=== PATIENT | female | born 1965 | race Caucasian/White ===

== ENCOUNTER 2024-06-22 07:26 | Emergency (ER) | payer OTHER, SELFPAY ==
[2024-06-22 07:28] VITALS: BP 169/119
[2024-06-22] MEDS: NSS 1000 IV (07:54)
[2024-06-22] MEDS: ZOFRAN 4 MG IV (07:55)
[2024-06-22] MEDS: TORADOL 15 MG IM (07:56)
[2024-06-22] MEDS: DILAUDID 1 MG IV (07:57)
--- NOTE | 2024-06-22 08:04 | ED.GENMED ---
History of Present Illness
General
Chief Complaint: Flank Pain
Source: patient
Exam Limitations: none
Time Seen by Provider: 06/22/24 07:41
Nursing documentation reviewed up to this point in time: agreed with
History of Present Illness
History of Present Illness:
58 yo female w h/o NIDDM, kidney stones w removal and stent, HTN, HLD, chronic UTIs, umbilical hernia repair x 2, presents for R flank pain 12/20 that started last p.m. Denies n/v. Denies fever/chills.
Was in [place] for a week, swimming etc. returned 5 days ago. Started having burning with urination a few days ago. Started Azo
Past History
Past History
ED Past Medical History: HTN, Hypercholesterolemia, NIDDM and Other (Kidney stones, UTI's)
ED Past Surgical History:
Social History
Tobacco: Former smoker
Alcohol: None
Drug: None
Personal:
Living: with family
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
Family History
Family History: Other (Mother recently )
Review of Systems
Review of Systems
Allergies reviewed?: Yes
All Other Systems: ROS reviewed and negative except as documented in HPI and ROS
Constitutional: Denies fever or chills
Respiratory: Denies trouble breathing
Cardiac: Denies chest pain
ABD/GI: Denies abdominal pain, nausea, vomiting or diarrhea
: Reports dysuria and flank pain (right)
Musculoskeletal: Reports no symptoms
Skin: Reports no symptoms
Neurological: Reports no symptoms
Phy Exam
Physical Exam
Physical Exam:
GENERAL: Moderate distress d/t R flank pain. A&Ox3.
CONSTITUTIONAL: Afebrile.
EYES: clear, conjunctivae normal
ENMT: moist mucus membranes, Pharynx nl
RESPIRATORY: Regular respirations, nonlabored, lungs clear.
CARDIOVASCULAR: Regular rate and rhythm, no murmurs, no rubs.
GI: Soft, nontender, normal BS. R flank tenderness
MUSCULOSKELETAL: Moves with ease. Well perfused.
SKIN: Warm, dry, pink
PSYCH: Anxious mood and affect. Well kept, interactive and appropriate
NEUROLOGIC: Awake, alert and oriented. No focal neurological deficits
Course
Orders/Labs/Results
Orders:
Orders
06/22/24 07:43
HYDROmorphone [Dilaudid] 1 mg IV NOW STA
06/22/24 07:44
CT Abd/pel Without Iv Or Oral Urgent
Comment:
Reason For Exam: R flank pain hx stones
0.9% Sodium Chloride 1000 ml [Nss] 1,000 ml IV BOLUS
Ketorolac [Toradol] 15 mg IM NOW STA
Ondansetron Injectable [Zofran] 4 mg IV NOW STA
06/22/24 07:53
Complete Blood Count/With Diff Urgent
Comprehensive Metabolic Panel Urgent
06/22/24 09:35
Urinalysis Reflex To Culture Urgent
Date Specimen was Collected: 06/22/24
Time Specimen was Collected: 09:29
Urine Microscopic Reflex Cult Urgent
Urine Culture Urgent
[facility] Source: U
Specimen Description:
Date Specimen was Collected: 06/22/24
Time Specimen was Collected: 09:29
06/22/24 10:44
CefTRIAXone [Rocephin] 1,000 mg IV NOW STA
06/22/24 10:58
Ciprofloxacin HCl [Cipro] 500 mg PO NOW STA
06/22/24 11:04
Acetaminophen [Tylenol] 1,000 mg PO NOW STA
Abnormal Lab Results
06/22/24 06/22/24
07:53 09:35
MPV 11.3 H fL
(7.4-10.4)
Absolute Lymphs (auto) 0.7 L 10^3/uL
(1.2-3.4)
Immature Gran % 0.7 H %
(0-0.5)
Lymphocytes % 11.6 L %
(20.5-51.1)
Monocytes % 9.8 H %
(1.7-9.3)
Sodium 132 L mmol/L
(135-145)
Creatinine 0.4 L mg/dL
(0.6-1.0)
Glucose 285 H mg/dl
(70-99)
AST 43 H U/L
(14-36)
ALT 53 H U/L
(0-35)
Alkaline Phosphatase 184 H U/L
(38-126)
Ur Occult Blood Reflex 4+ A
(Negative)
Urine Nitrite (Reflex) Positive A
(Negative)
Leukocyte Esterase Rfl 3+ A
(Negative)
Urine RBC >100 A /HPF
(0-2)
Urine WBC (Reflex) >100 A /HPF
(0-5)
Urine Bacteria (Reflex) Many A
(Negative)
Urine Albumin (Reflex) 3+ A
(Neg - Trace)
06/22/24 07:53
06/22/24 07:53
Vital Signs
Initial and Last Documented VS:
Initial Vital Signs
Temp Pulse Resp BP Pulse Ox
100.6 F H 120 18 169/119 98
06/22/24 07:28 06/22/24 07:28 06/22/24 07:28 06/22/24 07:28 06/22/24 07:28
Last Documented Vital Signs
Temp Pulse Resp BP Pulse Ox
100.6 F H 76 20 124/75 98
06/22/24 07:28 06/22/24 11:00 06/22/24 11:00 06/22/24 11:00 06/22/24 11:00
Insulation Worker Furnace Installer consulted with Physician
Insulation Worker Furnace Installer consulted with physician?: Yes
Name of Physician Consulted: Adalberto
MDM/Problems Addressed
Differential Diagnosis Includes:
kidney stone, UTI, pyelonephritis
MDM/Problems Addressed:
58 yo female w h/o NIDDM, kidney stones w removal and stent, HTN, HLD, chronic UTIs, umbilical hernia repair x 2, presents for R flank pain 12/20 that started last p.m. Denies n/v. Denies fever/chills.
Was in [place] for a week, swimming etc. returned 5 days ago. Started having burning with urination a few days ago. Started Azo.
Finished 7 days of Augmentin for right thumb wound, last dose 06/09
Temp 100.6
Moderate distress d/t pain R flank
8:30 a.m.
CBC With no clinically significant abnormality
CMP consistent with her baseline, no clinically significant abnormality
9:30 AM:
CT abdomen pelvis plain, radiology report read: IMPRESSION:
1. No right renal or ureteral calculi. No right hydronephrosis. There is slightly asymmetrically greater perinephric stranding on the right, infection is a differential consideration.
2. Nonobstructive left nephrolithiasis.
3. Hepatomegaly and splenomegaly.
4. Cholelithiasis.
10:30 a.m.
U/A: nitrites positive, leukocyte +3, RBC >100 WBC >100
Flank pain, R CVA tenderness, dysuria, low grade fever, +infected urine, Hx and exam consistent with acute complicated UTI/ pyelonephritis
No systemic symptoms such as chills, nausea/vomiting, fatigue
Previous urine cultures have grown out sy sensitive ecoli.
Plan: Cipro 500 mg twice daily for 7 days, she has seen Dr. Garrison urologist in the past and will follow-up with him
She states she is 'very aware' of worsening symptoms as she has had them before and needed to be admitted
*Critical Care Note
Total Time (30-74mins, 75-104mins- exclusive of procedures): Not Applicable
ED Attending Note
-
Portions of this chart may have been created with voice recognition software.� Occasional wrong word or��sound alike� substitutions may have occurred due to the inherent limitations of voice recognition software.
Discharge Plan
Departure
Patient Disposition: Home (Routine Discharge)
Date of Disposition: 06/22/24
Time of Disposition: 10:59
Patient with high blood pressure during this ER visit?: No
Condition: Good
Discharge Problem:
Pyelonephritis
Instructions: Urinary tract infection in adults - ED discharge instructions
Prescriptions:
New
ciprofloxacin HCl 500 mg tablet
500 mg PO BID Qty: 13 0RF
No Action
fenofibrate 160 MG tablet
160 mg PO DAILY
multivitamin with folic acid [Tab-A-Brisa] 1 TABLET tablet
1 tab PO DAILY
cyclobenzaprine 10 mg Tablet
10 mg PO HS PRN (Reason: muscle spasms)
aspirin 81 mg Tablet,Delayed Release (Dr/Ec)
81 mg PO DAILY
Fish Oil 120-180 mg Capsule
1 cap PO DAILY
metformin 500 mg tablet
1,000 mg PO DAILY
metoprolol succinate 50 mg Tablet Extended Release 24 Hr
50 mg PO DAILY Qty: 30 0RF
cephalexin 500 mg Capsule
500 mg PO QID Qty: 40 0RF
Referrals:
Parag Garrison MD [Active] - Call in 1-3 days for appt
UNKNOWN - PT DOES,NOT KNOW [Family Provider] -
Activity Restrictions/Additional Instructions:
As we discussed, you have pyelonephritis, a urine infection that is affecting your kidney.
Return here immediately if you develop vomiting, shaking chills, worsening pain, fever above 100.5 or feeling sicker in any way.
I sent a prescription to your pharmacy for ciprofloxacin to take twice a day for 7 days. Start it this evening as we gave you your first dose here today.
Call and make follow up visit with your Urologist
Interventions
Interventions:
*Risk Screen - Suicide Last Done: 06/22/24 07:28
*General Assessment Last Done: 06/22/24 07:28
*Neglect/Abuse Screening Last Done: 06/22/24 07:28
*ED COVID-19 Vaccine History Last Done: 06/22/24 09:30
*Nursing Disposition Last Done: 06/22/24 11:24
IR-Zyfyhz-Ujdcdtnfhl Assessment Last Done: 06/22/24 09:30
ED-Female Genitourinary Assessment Last Done: 06/22/24 09:30
Discharge Date and Time
Discharge Date/Time: 06/22/24 11:25
Print Language: PERSIAN
[2024-06-22 08:17] LABS: % Basophils 1.1 % (0-2); % Eosinophils 1.9 % (0-6); % Immature Granulocytes 0.7 % (0-0.5); % Lymphocytes 11.6 % (20.5-51.1); % Monocytes 9.8 % (1.7-9.3); % Neutrophils 74.9 % (42.2-75.2); Absolute Basophils 0.1 10^3/uL (0-0.2); Absolute Eosinophils 0.1 10^3/uL (0-0.7); Absolute Lymphocytes 0.7 10^3/uL (1.2-3.4); Absolute Monocytes 0.6 10^3/uL (0.1-0.6); Absolute Neutrophils 4.3 10^3/uL (1.4-6.5); Hematocrit 39.9 % (37.0-47.0); Hemoglobin 14.1 g/dL (12.0-16.0); Mean Corp Hgb Conc. 35.3 g/dL (33.0-37.0); Mean Corpuscular Hgb 30.6 pg (27.0-31.0); Mean Corpuscular Volume 86.6 fL (81.0-99.0); Mean Platelet Volume 11.3 fL (7.4-10.4); Nucleated Red Blood Cells % 0 %; Platelet Count 154 10^3/uL (130-400); Red Blood Cell Count 4.61 10^6/uL (4.20-5.40); White Blood Cell Count 5.7 10^3/uL (4.8-10.8)
[2024-06-22 08:26] LABS: ALT (SGPT) 53 U/L (0-35); AST (SGOT) 43 U/L (14-36); Albumin 3.8 g/dl (3.5-5.0); Alkaline Phosphatase 184 U/L (38-126); Blood Urea Nitrogen 13 mg/dl (7-17); Calcium 9.5 mg/dl (8.4-10.2); Carbon Dioxide 23 mmol/L (22-30); Chloride 102 mmol/L (98-107); Glucose 285 mg/dl (70-99); Potassium 4.6 mmol/L (3.5-5.1); Sodium 132 mmol/L (135-145); Total Bilirubin 0.7 mg/dl (0.2-1.3); Total Protein 7.7 g/dl (6.3-8.2); eGFR > 60.00
[2024-06-22 09:00] VITALS: BP 155/92
[2024-06-22 09:43] LABS: Urine Albumin 3+ (Neg - Trace); Urine Bilirubin Negative (Negative); Urine Character Cloudy (Clear); Urine Color Amber; Urine Glucose Negative (Negative); Urine Ketone Negative (Negative); Urine Leukocyte 3+ (Negative); Urine Nitrite Positive (Negative); Urine Occult Blood 4+ (Negative); Urine Urobilinogen Negative (Neg - 1+)
[2024-06-22 10:11] LABS: Urine Red Blood Cell >100 /HPF (0-2); Urine Squamous Cell 0-2 /LPF (Few)
[2024-06-22 10:12] LABS: Urine Bacteria Many (Negative); Urine White Cell >100 /HPF (0-5)
[2024-06-22 11:00] VITALS: BP 124/75
[2024-06-22] MEDS: TYLENOL 1000 MG PO (11:07)
[2024-06-22] MEDS: CIPRO 500 MG PO (11:08)
== END 2024-06-22 11:25 | disposition home or self-care (01) ==
LOC: EMR 07:26
PROVIDERS: Registered Nurse; EMERGENCY PHYSICIAN Student in an Organized Health Care Education/Training Program
DX: N12 Tubulo-interstitial nephritis, not specified as acute or chronic (principal); N20.0 Calculus of kidney; K80.20 Calculus of gallbladder without cholecystitis without obstruction; E11.9 Type 2 diabetes mellitus without complications; I10 Essential (primary) hypertension; E78.00 Pure hypercholesterolemia, unspecified; Z87.891 Personal history of nicotine dependence
CPT/HCPCS: 99284; 74176; 80053; 81003; 81015; 85025; 87077; 87086

== ENCOUNTER 2024-06-23 00:09 | Inpatient (IN) | payer OTHER, SELFPAY ==
[2024-06-22 17:22] VITALS: BP 187/104
[2024-06-22 22:23] VITALS: BP 158/101
--- NOTE | 2024-06-22 22:25 | ED.GENMED ---
History of Present Illness
General
Chief Complaint: Flank Pain
Source: patient
Exam Limitations: none
Time Seen by Provider: 06/22/24 22:07
Nursing documentation reviewed up to this point in time: agreed with
History of Present Illness
History of Present Illness:
Pleasant 58-year-old female returns to the emergency department with increased flank pain and dysuria. Patient was seen in the emergency department earlier today and diagnosed with pyelonephritis. Patient chose to be discharged home and when she
got home she states that the pain did not improve and she could not keep her antibiotics down. She states that she has had an admission for pyelonephritis in the past and admits that she should have stayed earlier. Patient just got back from a
[place] vacation she started having dysuria several days ago. She started Azo on her own. She was started on ciprofloxacin which she admits she could not keep down.
Past History
Past History
ED Past Medical History: HTN, Hypercholesterolemia, NIDDM and Other (Kidney stones, UTI's)
ED Past Surgical History:
Social History
Tobacco: Former smoker
Alcohol: None
Drug: None
Personal:
Living: with family
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
Family History
Family History: Other (Mother recently )
Review of Systems
Review of Systems
Allergies reviewed?: Yes
Other source history: family
All Other Systems: ROS reviewed and negative except as documented in HPI and ROS
Constitutional: Reports sleep disturbance
EENT: Reports no symptoms
Respiratory: Reports no symptoms
Cardiac: Reports no symptoms
ABD/GI: Reports nausea and vomiting
: Reports no symptoms
Musculoskeletal: Reports no symptoms
Skin: Reports no symptoms
Neurological: Reports no symptoms
Endocrine: Reports no symptoms
Hematologic/Lymphatic: Reports no symptoms
Psychiatric: Reports anxiety
Phy Exam
General Physical Exam
General Presentation: well appearing and no apparent distress
General Skin: warm and dry
General Habitus: normal
General Mental: alert
General Hydration: appears well hydrated
ENT Exam
ENT Exam: EOMI, pharynx normal, neck supple and normocephalic
Eye Exam
Eye Exam: PERRL, cornea clear and conjunctiva normal
Cardiovascular Exam
Cardiovascular Exam: regular rate/rhythm, no edema, no murmur and normal peripheral pulses
Pulmonary Exam
Pulmonary Exam: lungs clear, no respiratory distress, no rales, no crackles, no rhonchi, no stridor, no wheezing and no cough
Gastrointestinal Exam
Gastrointestinal Exam: normal bowel sounds, non tender, soft, no organomegaly, no pulsatile mass and non distended
Neurological Exam
Neurological Exam: alert, oriented x3, no motor deficits and speech normal
Musculoskeletal Exam
Musculoskeletal Exam: full ROM and no edema
Skin Exam
Skin Exam: normal color, warm/dry, no rash and no petechia
Psychiatric Exam
Psychiatric Exam: normal mood/affect
Course
Orders/Labs/Results
Orders:
Orders
06/22/24 22:24
Ondansetron Injectable [Zofran] 4 mg .ROUTE .STK-MED ONE
06/22/24 22:36
EKG [Electrocardiogram (*1)] Urgent
Reason for Study: QTc Monitoring
EKG- Treatment ONCE
06/22/24 22:37
CefTRIAXone [Rocephin] 1,000 mg IV NOW STA
Morphine Sulfate 4 mg IV NOW STA
Vital Signs
Initial and Last Documented VS:
Initial Vital Signs
Temp Pulse Resp BP Pulse Ox
98.3 F 87 16 187/104 96
06/22/24 17:22 06/22/24 17:22 06/22/24 17:22 06/22/24 17:22 06/22/24 17:22
Last Documented Vital Signs
Temp Pulse Resp BP Pulse Ox
98.3 F 90 16 158/101 95
06/22/24 17:22 06/22/24 22:26 06/22/24 22:23 06/22/24 22:23 06/22/24 22:26
*Radiology
Radiology exam reviewed: radiology read reviewed
*Critical Care Note
Total Time (30-74mins, 75-104mins- exclusive of procedures): Not Applicable
Update Note
Update Note:
CT From earlier today:
IMPRESSION:
1. No right renal or ureteral calculi. No right hydronephrosis. There is slightly asymmetrically greater perinephric stranding on the right, infection is a differential consideration.
2. Nonobstructive left nephrolithiasis.
3. Hepatomegaly and splenomegaly.
4. Cholelithiasis.
Patient was diagnosed with pyelonephritis. Started on antibiotics. She cannot tolerate them at home. Her symptoms are not improving. Patient to be brought into the hospital for continued treatment and observation.
ED Attending Note
-
Portions of this chart may have been created with voice recognition software.� Occasional wrong word or��sound alike� substitutions may have occurred due to the inherent limitations of voice recognition software.
Discharge Plan
Departure
Patient Disposition: Admit
Date of Disposition: 06/22/24
Time of Disposition: 22:39
Admit to: Med/Surg
Presentation/result/management discussed w/ accepting MD/DO: Hospitalist
Condition: Fair
Discharge Problem:
Pyelonephritis, Nausea & vomiting
Prescriptions:
No Action
fenofibrate 160 MG tablet
160 mg PO DAILY
multivitamin with folic acid [Tab-A-Brisa] 1 TABLET tablet
1 tab PO DAILY
cyclobenzaprine 10 mg Tablet
10 mg PO HS PRN (Reason: muscle spasms)
aspirin 81 mg Tablet,Delayed Release (Dr/Ec)
81 mg PO DAILY
Fish Oil 120-180 mg Capsule
1 cap PO DAILY
metformin 500 mg tablet
1,000 mg PO DAILY
metoprolol succinate 50 mg Tablet Extended Release 24 Hr
50 mg PO DAILY Qty: 30 0RF
cephalexin 500 mg Capsule
500 mg PO QID Qty: 40 0RF
ciprofloxacin HCl 500 mg tablet
500 mg PO BID Qty: 13 0RF
Referrals:
UNKNOWN,NO INTERVIEW [Family Provider] -
Interventions
Interventions:
*Risk Screen - Suicide Last Done: 06/22/24 17:22
*General Assessment Last Done: 06/22/24 17:23
*Neglect/Abuse Screening Last Done: 06/22/24 22:26
*ED COVID-19 Vaccine History Last Done: 06/22/24 22:26
TZ-Pdhegb-Mtjjjgurjc Assessment Last Done: 06/22/24 22:26
ED-Female Genitourinary Assessment Last Done: 06/22/24 22:26
Discharge Date and Time
Print Language: BAHRAINI
[2024-06-22 22:26] VITALS: BMI 36.4
[2024-06-22] MEDS: ZOFRAN 4 MG IV (22:47)
[2024-06-22] MEDS: MORPHINE SULFATE 4 MG IV (22:48)
[2024-06-22] MEDS: ROCEPHIN 1000 MG IV (22:49)
[2024-06-22 23:00] VITALS: BP 168/96
--- NOTE | 2024-06-22 23:09 | HPS.HSE ---
Family Physician
-
Family Physician: NO INTERVIEW UNKNOWN
Chief Complaint
-
Flank Pain
History of Present Illness
Patient is a 58 y/o female past medical history of hypertension, diabetes mellitus and prior pyelonephritis who presents with right flank and dysuria. Patient reports dysuria started two days ago, and yesterday she developed right flank pain that
worsened of the coarse of the day. She presented to the emergency department this morning at which time she was diagnosed with pyelonephritis. She was feeling well and opted for discharge home at that time, but returns with recurrent,
nausea/vomiting and inability to tolerate her oral antibiotics.
Medical History
Past Medical History
Past Medical History: Reports Other
Additional Past Medical History:
Diabetes Mellitus, Type II
Essential Hypertension
Nephrolithiasis
Right Sciatica
Past Surgical History: Reports Other
Additional Past Surgical History:
Herniorrhaphy
Left Staghorn Calculus Removal (2010)
Left Ureteroscopy / Lithotripsy / Stent (2011)
Social History
Tobacco: Former Smoker (Quit in 1999)
Family History
Family History: Other (Strong family history of premature CAD in males. Mother: Dementia)
Allergies / Home Medications
Allergies reflects when Allergies were last updated in [facility].
Home Medications with original date entered in [facility]
Allergy/Medication List:
Allergies
Allergy/AdvReac Type Severity Reaction Status Date / Time
No Known Allergies Allergy Verified 06/22/24 07:27
Home Medications
fenofibrate 160 mg tablet 160 mg PO DAILY HIGH TRIGLYCERIDES 03/27/11
multivitamin with folic acid 400 mcg tablet (Tab-A-Brisa) 1 tab PO DAILY Supplement 09/02/12
aspirin 81 mg tablet,delayed release 81 mg PO DAILY Blood clot prevention/tx 12/30/21
docosahexaenoic acid (dha)-epa 120 mg-180 mg capsule (Fish Oil) 1 cap PO DAILY Supplement 12/30/21
metformin 500 mg tablet 500 mg PO BID Diabetes 12/30/21
ciprofloxacin HCl 500 mg tablet 500 mg PO BID #13 tabs 06/22/24
metoprolol succinate 50 mg tablet,extended release 24 hr 50 mg PO BID 06/22/24
Review of Systems
-
A 12 point ROS was completed and negative except as noted: Yes
Constitutional: Reports Fever (Notes in ED this morning, afebrile at present time)
Respiratory: Denies Cough or Trouble Breathing
Cardiac: Denies Chest Pain or Palpitations
Abdomen/GI: Denies Abdominal Pain
: Reports See HPI
Physical Exam
Vital Signs
Vital Signs
Temp Pulse Resp BP Pulse Ox
98.3 F 89 14 168/96 96
06/22/24 17:22 06/22/24 23:00 06/22/24 23:00 06/22/24 23:00 06/22/24 23:00
Physical Exam
General: Comfortable and Conversant
HEENT: Anicteric and Moist mucous membranes
Respiratory: Clear and Non Labored Respirations
Cardiac: S1/S2 and Regular Rhythm
GI: Soft and Non Tender
Genito-urinary: Other (Mild right CVA tenderness)
Musculoskeletal: No Clubbing, No Cyanosis and No Edema
Skin: Warm and Dry
Neuro: Awake, Alert, Oriented and Nonfocal/grossly intact
Psych: Calm
Laboratory Results
-
Laboratory Tests
06/22/24 06/22/24
07:53 09:35
WBC 5.7
Hgb 14.1
Hct 39.9
Plt Count 154
Sodium 132 L
Potassium 4.6
Chloride 102
Carbon Dioxide 23
BUN 13
Creatinine 0.4 L
Glucose 285 H
Calcium 9.5
Total Bilirubin 0.7
AST 43 H
ALT 53 H
Alkaline Phosphatase 184 H
Total Protein 7.7
Albumin 3.8
Urine Color Becky
Urine Clarity Cloudy
Urine pH 7.0
Ur Specific [place] 1.010
Urine Ketones Negative
Ur Occult Blood Reflex 4+ A
Urine Nitrite (Reflex) Positive A
Urine Bilirubin Negative
Urine Urobilinogen Negative
Leukocyte Esterase Rfl 3+ A
Urine RBC >100 A
Urine WBC (Reflex) >100 A
Ur Squamous Epith Cells 0-2
Urine Bacteria (Reflex) Many A
Urine Glucose Negative
Urine Albumin (Reflex) 3+ A
Abd/Pelvis CT:
No right renal or ureteral calculi. No right hydronephrosis. There is slightly asymmetrically greater perinephric stranding on the right, infection is a differential consideration.
Data Reviewed
-
CT Scan: Report Reviewed by me
Lab Data: Labs Reviewed by me
Old Records: Reviewed
Impression/Plan
-
Right Pyelonephritis
-Continue ceftriaxone
-Await urine culture
-Continue Zofran prn nausea
-Continue Tylenol for mild pain, Toradol for moderate pain, and Dilaudid for severe pain
-Allow clear liquids and advance as tolerated
Diabetes Mellitus, Type II
-Hold Metformin
-Monitor sugars and continue coverage insulin
Essential Hypertension
-Continue metoprolol with hold parameters
Hyperlipidemia
-Continue fenofibrate
Class II Obesity due Excess Calories
-Affects all aspects of care
DVT proph: SCDs
Code Status: Full Code
--- NOTE | 2024-06-22 23:30 | W.PN.UPDATE ---
Update Note
Progress Note Update
Patient seen in conjunction with YARI. I agree with the findings and history and physical. I concur with the assessment and plan listed otherwise.
This is a 58-year-old with past medical history significant for hypertension, hyperlipidemia, nephrolithiasis and qnc-lqklabx-vxjzrevyh diabetes was had prior history of pyelonephritis coming to the emergency department after being evaluated earlier
in the morning for urinary symptoms and diagnosed with pyelonephritis and statins improved but unable to tolerate p.o. due to nausea and vomiting.
Patient reports onset of symptoms about 1 week ago while she was on vacation. She reports initially having an episode of dysuria which resolved. She then reported an episode of flank pain 2 days later which also resolved. However over the last 2
days she reported recurrence of a right-sided flank pain radiating to the groin and then she developed urinary frequency which caused her to come to the emergency department.
In the emergency department she had a positive UA and CT scan which shows a right-sided perinephric stranding consistent with pyelonephritis. She was started on ciprofloxacin p.o. and discharged to home. However at home patient had nausea and
vomiting. When she took Tylenol she vomited it so she came back to the emergency department. She denies having any fevers or chills. History is notable for pyelonephritis with sepsis in the recent past.
Currently she is afebrile, blood pressure 168/96 with a pulse of 89 and satting 96% on room air. ECG with normal sinus rhythm at a rate of 93. CBC is unremarkable. Electrolytes BUN/creatinine were all within the normal range. Glucose elevated at
283. UA positive as previously noted. CT scan with right perinephric stranding greater than left, no hydronephrosis and no obstructing stone. Left-kidney nonobstructive nephrolithiasis.
Assessment and plan
Pyelonephritis
- admit to med/surg
- blood cultures and urine cultures obtained in am
- IV ceftriaxone for now
- supportive measures with antiemetics, tylenol/toradol and dilaudid prn
- IV fluids
DM II
- hold metformin x 24 hours
- sliding scale insulin for now
DVT PPX - SCDs
Code status - Full code
[2024-06-23 01:00] VITALS: BP 183/106; BMI 36.2
[2024-06-23 01:29] LABS: Glucose - Point of Care 136 mg/dl (70-99)
[2024-06-23] MEDS: MELATONIN 5 MG PO (01:45)
[2024-06-23] MEDS: TOPROL XL 50 MG PO ×3 (01:45→19:56)
[2024-06-23] MEDS: NSS 1000 IV ×3 (01:46→21:29)
[2024-06-23] MEDS: TYLENOL 650 MG PO (05:28)
[2024-06-23] MEDS: ANESTHETIC LOZENGE 1 LOZENGE PO (05:32)
[2024-06-23 06:01] LABS: COVID-19 Antigen Positive (Negative)
--- NOTE | 2024-06-23 06:22 | PTCARENOTE ---
pt complained of sudden bad sore throat with congestion- swabbed and is covid positive.
--- NOTE | 2024-06-23 06:30 | W.PN.UPDATE ---
Update Note
Progress Note Update
Late note:
5:30 am -�Pt c/o sudden congestion, runny nose, sore throat, afebrile. Was on a plane before admission. Ordered COVID, Flu A & B.�
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
[2024-06-23 07:21] LABS: Glucose - Point of Care 214 mg/dl (70-99)
[2024-06-23 07:44] VITALS: BP 163/88
[2024-06-23 08:42] LABS: Hematocrit 37.3 % (37.0-47.0); Hemoglobin 12.6 g/dL (12.0-16.0); Mean Corp Hgb Conc. 33.8 g/dL (33.0-37.0); Mean Corpuscular Hgb 30.1 pg (27.0-31.0); Mean Platelet Volume 11.2 fL (7.4-10.4); Platelet Count 134 10^3/uL (130-400); Red Blood Cell Count 4.19 10^6/uL (4.20-5.40); Red Cell Dist. Width 13.4 % (11.5-14.5); White Blood Cell Count 5.1 10^3/uL (4.8-10.8)
[2024-06-23 09:12] LABS: Glycohemoglobin (HgbA1c) 8.7 % (4.0-5.6)
[2024-06-23] MEDS: OCEAN, SALINE MIST 1 SPRAYS NASAL (09:12)
[2024-06-23] MEDS: TRICOR 145 MG PO (09:12)
[2024-06-23] MEDS: ASPIR LOW (ENTERIC COATED) 81 MG PO (09:12)
[2024-06-23] MEDS: NOVOLOG FLEXPEN-LOW RESISTANCE 2 UNITS SC (09:14)
[2024-06-23 09:36] LABS: Blood Urea Nitrogen 8 mg/dl (7-17); Calcium 8.7 mg/dl (8.4-10.2); Carbon Dioxide 24 mmol/L (22-30); Chloride 103 mmol/L (98-107); Estimated Creatinine Clearance > 125 ml/min; Glucose 210 mg/dl (70-99); Potassium 4.1 mmol/L (3.5-5.1); Sodium 134 mmol/L (135-145); eGFR > 60.00
--- NOTE | 2024-06-23 11:16 | CM ---
CM following re: discharge planning.
Reviewed pt's chart, met with pt.
Pt is a 58 year old female, admitted with primary dx of Right Pyelonephritis.
Pt reports she lives with and a son 2SH, 1 step to enter, has 2 supportive sons. 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
PCP: Ronit Lewis
Pharmacy: [facility]
D/C plan: home with anticipated no needs. Spouse to transport at discharge.
CM will follow with discharge plan updates as needed.
--- NOTE | 2024-06-23 11:19 | W.PN.HOSP.TC ---
Today's Communication/Plan
-
await urine culture
cont IVF at lower rate
Assessment / Plan
Assessment / Plan
pt is a 58 year old female
covid positive -- checked early this AM--not hypoxic or ill appearing--no treatment at this time
Right Pyelonephritis--urine culture positive for gm neg bacilli--identification not back--cont ceftriaxone
Diabetes Mellitus, Type II--cont metformin--accuchecks and SSI
Essential Hypertension--Continue metoprolol with hold parameters
Hyperlipidemia--Continue fenofibrate
Class II Obesity due Excess Calories--Affects all aspects of care
DVT proph--SCDs
Code Status--Full Code
Anticipated Discharge: 24 - 48 hours
Subjective/Interval History
-
Date of Service: June 23, 2024
pt c/o stuffy nose and back pain
Objective Data
-
Labs:
Laboratory Results
06/23/24
08:03
WBC 5.1
Hgb 12.6
Hct 37.3
Plt Count 134
Sodium 134 L
Potassium 4.1
Chloride 103
Carbon Dioxide 24
BUN 8
Creatinine 0.4 L
Glucose 210 H
Calcium 8.7
Vital Signs:
max temp for 24 hours
06/22/24
07:28
Temp 100.6 F H
Vital Signs
Temp Pulse Resp BP Pulse Ox
98.7 F 87 18 163/88 95
06/23/24 07:44 06/23/24 09:12 06/23/24 07:44 06/23/24 09:12 06/23/24 07:44
I&O
06/22/24 06/23/24 06/24/24
06:59 06:59 06:59
Intake Total 440 / 440 300 / 300
Balance 440 / 440 300 / 300
Review of Systems
-
All other systems: Reviewed and negative
EENT: Reports Other (stuffiness/congestion)
Musculoskeletal: Reports Other (back pain)
Physical Exam
-
General: Well Developed, Well Nourished and No Apparent Distress
HEENT: Normocephalic and Atraumatic
Respiratory: Clear to Auscultation; Negative Wheezes or Rhonchi
Cardiac: Regular Rhythm and S1/S2; Negative Murmur
GI: Soft, Nontender, Nondistended and Normal Bowel Sounds
Musculoskeletal: No Clubbing, No Cyanosis and No Edema
Skin: Warm
Neuro: Awake and Alert
Psych: Calm
[2024-06-23] MEDS: MUCINEX 1200 MG PO ×2 (12:12→19:56)
[2024-06-23 12:18] LABS: Glucose - Point of Care 260 mg/dl (70-99)
[2024-06-23] MEDS: PERCOCET 5/325 1 TABLET PO ×2 (13:05→19:56)
[2024-06-23] MEDS: NOVOLOG FLEXPEN-LOW RESISTANCE 3 UNITS SC (13:05)
[2024-06-23 15:56] VITALS: BP 133/78
[2024-06-23 16:50] LABS: Glucose - Point of Care 174 mg/dl (70-99)
[2024-06-23] MEDS: NOVOLOG FLEXPEN-LOW RESISTANCE 1 UNITS SC (17:11)
[2024-06-23] MEDS: GLUCOPHAGE 500 MG PO (17:12)
[2024-06-23 21:30] LABS: Glucose - Point of Care 230 mg/dl (70-99)
[2024-06-23] MEDS: STERILE WATER FOR INJECTION 10 ML IV (21:30)
[2024-06-23] MEDS: ROCEPHIN 1000 MG IV (21:30)
[2024-06-23 23:18] VITALS: BP 140/84
[2024-06-24 07:18] LABS: Glucose - Point of Care 198 mg/dl (70-99)
[2024-06-24 07:27] VITALS: BP 153/92
[2024-06-24] MEDS: TYLENOL 650 MG PO (08:12)
[2024-06-24] MEDS: GLUCOPHAGE 500 MG PO (08:13)
[2024-06-24] MEDS: MUCINEX 1200 MG PO (08:13)
[2024-06-24] MEDS: ASPIR LOW (ENTERIC COATED) 81 MG PO (08:13)
[2024-06-24] MEDS: TRICOR 145 MG PO (08:13)
[2024-06-24] MEDS: NOVOLOG FLEXPEN-LOW RESISTANCE 1 UNITS SC (08:13)
[2024-06-24] MEDS: TOPROL XL 50 MG PO (08:13)
[2024-06-24] MEDS: PERCOCET 5/325 1 TABLET PO (08:20)
[2024-06-24 08:44] LABS: Hematocrit 37.9 % (37.0-47.0); Hemoglobin 12.7 g/dL (12.0-16.0); Mean Corp Hgb Conc. 33.5 g/dL (33.0-37.0); Mean Corpuscular Volume 89.6 fL (81.0-99.0); Mean Platelet Volume 11.6 fL (7.4-10.4); Platelet Count 143 10^3/uL (130-400); Red Blood Cell Count 4.23 10^6/uL (4.20-5.40); Red Cell Dist. Width 13.5 % (11.5-14.5); White Blood Cell Count 5.3 10^3/uL (4.8-10.8)
[2024-06-24 09:15] LABS: ALT (SGPT) 41 U/L (0-35); AST (SGOT) 28 U/L (14-36); Albumin 3.4 g/dl (3.5-5.0); Alkaline Phosphatase 132 U/L (38-126); Blood Urea Nitrogen 8 mg/dl (7-17); Calcium 9.1 mg/dl (8.4-10.2); Carbon Dioxide 29 mmol/L (22-30); Chloride 104 mmol/L (98-107); Estimated Creatinine Clearance > 125 ml/min; Glucose 200 mg/dl (70-99); Magnesium 1.7 mg/dl (1.6-2.3); Potassium 4.3 mmol/L (3.5-5.1); Sodium 137 mmol/L (135-145); Total Bilirubin 0.7 mg/dl (0.2-1.3); Total Protein 6.8 g/dl (6.3-8.2); eGFR > 60.00
--- NOTE | 2024-06-24 10:39 | W.PN.HOSP.TC ---
Today's Communication/Plan
-
d/c
Assessment / Plan
Assessment / Plan
pt is a 58 year old female
covid positive ---not hypoxic or ill appearing--no treatment at this time
Right Pyelonephritis--urine culture positive for Klebsiella pneumoniae--ceftriaxone to keflex
Diabetes Mellitus, Type II--cont metformin--accuchecks and SSI
Essential Hypertension--Continue metoprolol
Hyperlipidemia--Continue fenofibrate
Class II Obesity due Excess Calories--Affects all aspects of care
DVT proph--SCDs
Code Status--Full Code
Anticipated Discharge: Today
Subjective/Interval History
-
Date of Service: June 24, 2024
pt doing OK
Objective Data
-
Labs:
Laboratory Results
06/24/24
08:14
WBC 5.3
Hgb 12.7
Hct 37.9
Plt Count 143
Sodium 137
Potassium 4.3
Chloride 104
Carbon Dioxide 29
BUN 8
Creatinine 0.5 L
Glucose 200 H
Calcium 9.1
Total Bilirubin 0.7
AST 28
ALT 41 H
Alkaline Phosphatase 132 H
Vital Signs:
max temp for 24 hours
06/24/24
07:27
Temp 99.6 F
Vital Signs
Temp Pulse Resp BP Pulse Ox
99.6 F 86 18 153/92 95
06/24/24 07:27 06/24/24 07:27 06/24/24 07:27 06/24/24 07:27 06/24/24 07:27
I&O
06/23/24 06/24/24 06/25/24
06:59 06:59 06:59
Intake Total 440 / 440 780 / 780
Balance 440 / 440 780 / 780
Review of Systems
-
All other systems: Reviewed and negative
Musculoskeletal: Reports Other (back pain)
Neuro: Reports Headache
Physical Exam
-
General: Well Developed, Well Nourished and No Apparent Distress
HEENT: Normocephalic and Atraumatic
Respiratory: Clear to Auscultation; Negative Wheezes or Rhonchi
Cardiac: Regular Rhythm and S1/S2; Negative Murmur
GI: Soft, Nontender, Nondistended and Normal Bowel Sounds
Musculoskeletal: No Clubbing, No Cyanosis and No Edema
Neuro: Awake
[2024-06-24] MEDS: NSS IV (12:13)
[2024-06-24] MEDS: NOVOLOG FLEXPEN-LOW RESISTANCE SC (12:13)
--- NOTE | 2024-06-24 15:39 | W.DCSUMMARY ---
Discharge Summary
Discharge Data
Date of Admission: 06/23/24
Date of Discharge: 06/24/24
-
Pending Results: No
Hospital Course
Primary care physician : [facility]
Principal Discharge diagnosis : COVID-positive, right pyelonephritis with Klebsiella pneumoniae urinary tract infection
Chronic Discharge diagnosis : Type 2 diabetes mellitus, essential hypertension, hyperlipidemia
Hospital Course : Patient was a 58-year-old female who presented with right flank pain and dysuria. She started 2 days prior to admission with dysuria and then the day prior developed right flank pain which worsened throughout the course of the
day. She was discharged home after evaluation in the emergency department but returned with recurrent symptoms, nausea/vomiting and inability to tolerate oral antibiotics. Patient was admitted.
Problem #1: Right pyelonephritis with Klebsiella pneumoniae urinary tract infection. Patient was started on IV ceftriaxone and actually had ciprofloxacin as an outpatient. Urine culture returned positive for Klebsiella pneumoniae. Ceftriaxone has
been transitioned to Keflex. She is much improved without any fevers or chills and white count has been stable.
Problem #2: COVID-positive. While in the hospital, patient developed stuffy nose, sore throat and congestion. She was tested for COVID and was found to be positive. She is not wheezing, not hypoxic, not febrile and treatments were not indicated.
Problem #3: All other medical issues. These include Type 2 diabetes mellitus, essential hypertension, hyperlipidemia. These medical issues were stable during her hospitalization. Medications were continued as able.
Patient is stable for discharge home at this time. If there are any questions regarding this dictation or her hospital stay, please do not hesitate to call. Our office number is [phone].
Important imaging findings :
CT SCAN ABDOMEN/PELVIS IMPRESSION:
1. No right renal or ureteral calculi. No right hydronephrosis. There is slightly asymmetrically greater perinephric stranding on the right, infection is a differential consideration.
2. Nonobstructive left nephrolithiasis.
3. Hepatomegaly and splenomegaly.
4. Cholelithiasis.
Discharge Plan
-
Patient Disposition: Home (Routine Discharge)
Discharge Diagnosis/Procedures: Klebsiella pneumonia I pyelonephritis/urinary tract infection, COVID positivity, type 2 diabetes mellitus, essential hypertension, hyperlipidemia, obesity due to excess calories
Condition: Good
Diet: As tolerated and Regular
Activity: As tolerated
Driving Restrictions: As prior to admission
Bathing Restrictions: None
Referrals:
UNKNOWN,NO INTERVIEW [Family Provider] - in less than 1 week
Prescriptions:
New
oxycodone-acetaminophen 5-325 mg Tablet
1 tab PO Q4HPRN PRN (Reason: moderate pain) Qty: 7 0RF
guaifenesin 600 mg Tablet Extended Release 12hr
1,200 mg PO Q12 Qty: 0 0RF
cephalexin 500 mg capsule
500 mg PO TID 10 Days Qty: 30 0RF
ondansetron 4 mg tablet,disintegrating
4 mg PO Q8H PRN (Reason: n/v) Qty: 20 0RF
Continued
fenofibrate 160 MG tablet
160 mg PO DAILY
multivitamin with folic acid [Tab-A-Brisa] 1 TABLET tablet
1 tab PO DAILY
aspirin 81 mg Tablet,Delayed Release (Dr/Ec)
81 mg PO DAILY
Fish Oil 120-180 mg Capsule
1 cap PO DAILY
metformin 500 mg tablet
500 mg PO BID
metoprolol succinate 50 mg tablet extended release 24 hr
50 mg PO BID
Discontinued
ciprofloxacin HCl 500 mg tablet
500 mg PO BID
Discharge Orders:
Discharge Patient (As Directed); Ordered 06/24/24
Ordered By: Elke Mckeon
Discharge Date and Time
Discharge Date/Time: 06/24/24 13:10
Print Language: HUNGARIAN
== END 2024-06-24 13:10 | disposition home or self-care (01) | DRG 689 ==
LOC: 2 NORTH 00:09
PROVIDERS: Nurse Practitioner Family; Physician Assistant Medical; ADMITTING PHYSICIAN Internal Medicine; ATTENDING PHYSICIAN Internal Medicine; EMERGENCY PHYSICIAN Student in an Organized Health Care Education/Training Program
DX: N12 Tubulo-interstitial nephritis, not specified as acute or chronic (principal); U07.1 COVID-19; I10 Essential (primary) hypertension; E66.812 Obesity, class 2; E11.9 Type 2 diabetes mellitus without complications; E78.00 Pure hypercholesterolemia, unspecified; M54.31 Sciatica, right side; N20.0 Calculus of kidney; Z79.84 Long term (current) use of oral hypoglycemic drugs; Z79.82 Long term (current) use of aspirin; Z87.891 Personal history of nicotine dependence; Z68.36 Body mass index [BMI] 36.0-36.9, adult
CPT/HCPCS: 80048; 80053; 82962; 83036; 83735; 85027; 87502; 87811; 93005; 96374; 96375; 99285

== ENCOUNTER 2024-11-24 04:01 | Emergency (ER) | payer OTHER, SELFPAY ==
[2024-11-24 04:08] VITALS: BP 183/113
--- NOTE | 2024-11-24 05:00 | EDRN ---
patient's came out of the room asking when a provider would be in to see her, informed him that we are busy and they are working through the list and hopefully would not be too much longer.
--- NOTE | 2024-11-24 05:15 | EDRN ---
back out of room stating 'i know it can't be busy out here because there is no one here' was explained to patients that it has been busy and the providers are working a quickly as they can, water was provided for patient as well.
--- NOTE | 2024-11-24 06:16 | ED.GENMED ---
History of Present Illness
<Sonali Zayas DO, Resident - Last Filed: 11/24/24 10:01>
General
Chief Complaint: Eye Problems
Source: patient and significant other
Exam Limitations: none
Time Seen by Provider: 11/24/24 06:03
Nursing documentation reviewed up to this point in time: agreed with
History of Present Illness
History of Present Illness:
Patient is a 58-year-old female past medical history of hypertension presenting with a corneal abrasion. [place] the beach [place] and thinks that sand irritated her eye with a contact in. Patient's eye had been getting progressively
more painful she went to see an [facility] portal consultant at [facility] on Wednesday. They prescribed her tobramycin antibiotic drops as well as steroid drops. Wednesday night patient felt she was improving. Wednesday when she woke up patient was in excruciating pain.
Patient went back on morning and they told her to stop the steroids, switched the abx drops to moxifloxacin and gave her a 'contact lens bandage.' Patient is now in even worse pain. Describes a 10 out of 10. She is very light sensitive,
and holding a towel over her eyes. Patient describes the pain as all around her orbit.
Past History
<Sonali Zayas DO, Resident - Last Filed: 11/24/24 10:01>
Past History
ED Past Medical History: HTN, Hypercholesterolemia, NIDDM and Other (Kidney stones, UTI's)
ED Past Surgical History:
Social History
Tobacco: Former smoker
Alcohol: None
Drug: None
Personal:
Living: with family
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
Family History
Family History: Other (Mother recently )
Review of Systems
<Sonali Zayas DO, Resident - Last Filed: 11/24/24 10:01>
Review of Systems
Allergies reviewed?: Yes
All Other Systems: ROS reviewed and negative except as documented in HPI and ROS
Constitutional: Reports no symptoms
EENT: Reports tearing and other
Respiratory: Reports no symptoms
Cardiac: Reports no symptoms
ABD/GI: Reports no symptoms
: Reports no symptoms
Musculoskeletal: Reports no symptoms
Skin: Reports no symptoms
Neurological: Reports no symptoms
Endocrine: Reports no symptoms
Hematologic/Lymphatic: Reports no symptoms
Psychiatric: Reports no symptoms
Phy Exam
<Sonali Zayas DO, Resident - Last Filed: 11/24/24 10:01>
General Physical Exam
General Presentation: moderate distress
General age: appears stated age
General Skin: warm and dry
General Habitus: obese
General Mental: alert
Eye Exam
Eyelid Exam: red and inflamed: Left and painful to palpate: Left
Cardiovascular Exam
Cardiovascular Exam: tachycardia
Heart Sounds: normal
Pulmonary Exam
Pulmonary Exam: lungs clear and no respiratory distress
Skin Exam
Skin Exam: normal color and warm/dry
Psychiatric Exam
Psychiatric Exam: normal mood/affect
Course
<Sonali Zayas DO, Resident - Last Filed: 11/24/24 10:01>
Orders/Labs/Results
Orders:
Orders
11/24/24 06:51
Visual Acuity- Treatment ONCE
11/24/24 07:20
Acetaminophen [Tylenol] 1,000 mg PO NOW STA
Vital Signs
Initial and Last Documented VS:
Initial Vital Signs
Temp Pulse Resp BP Pulse Ox
98.5 F 109 18 183/113 98
11/24/24 04:08 11/24/24 04:08 11/24/24 04:08 11/24/24 04:08 11/24/24 04:08
Last Documented Vital Signs
Temp Pulse Resp BP Pulse Ox
98.5 F 81 16 148/90 99
11/24/24 04:08 11/24/24 08:50 11/24/24 08:50 11/24/24 08:50 11/24/24 08:50
<Juan M Hernandez, DO - Last Filed: 11/24/24 09:22>
Orders/Labs/Results
Orders:
Orders
11/24/24 06:51
Visual Acuity- Treatment ONCE
11/24/24 07:20
Acetaminophen [Tylenol] 1,000 mg PO NOW STA
Vital Signs
Initial and Last Documented VS:
Initial Vital Signs
Temp Pulse Resp BP Pulse Ox
98.5 F 109 18 183/113 98
11/24/24 04:08 11/24/24 04:08 11/24/24 04:08 11/24/24 04:08 11/24/24 04:08
Last Documented Vital Signs
Temp Pulse Resp BP Pulse Ox
98.5 F 81 16 148/90 99
11/24/24 04:08 11/24/24 08:50 11/24/24 08:50 11/24/24 08:50 11/24/24 08:50
<Sonali Zayas DO, Resident - Last Filed: 11/24/24 10:01>
MDM/Problems Addressed
Differential Diagnosis Includes:
Corneal abrasion, conjunctivitis, keratitis
MDM/Problems Addressed:
Removed the contact bandage and applied numbing drops. Patient provided some relief. Perform slit-lamp exam, visualized corneal abrasion at 6:00. Will reach out to ophthalmology to see if they have availability today to see patient. Gave patient
1 g Tylenol for pain management.
Ophthalmology willing to take patient today. Patient will head over there now. Ready for discharge.
<Sonali Zayas DO, Resident - Last Filed: 11/24/24 10:01>
*Pulse Oximetry
SaO2: 98
Oxygen Mode of Delivery: Room air
Patient hypoxic: no
*Critical Care Note
Total Time (30-74mins, 75-104mins- exclusive of procedures): Not Applicable
ED Attending Note
<Sonali Zayas DO, Resident - Last Filed: 11/24/24 10:01>
-
Portions of this chart may have been created with voice recognition software.� Occasional wrong word or��sound alike� substitutions may have occurred due to the inherent limitations of voice recognition software.
<Juan M Hernandez DO - Last Filed: 11/24/24 09:22>
ED Attending Note
Patient seen and examined by attending physician: Yes
I performed a history and physical exam of patient and discussed management with resident, I reviewed resident's note and agree with documented findings and plan of care.: Yes
ED Attending Note:
I have reviewed and agree with his and treatment plan by Sonali Zayas DO. My exam revealed 58-year-old female with left corneal abrasion seen on fluorescein staining. No ulcer seen. Patient will continue moxifloxacin and proceed to be seen
by [facility] consultant.
Discharge Plan
Departure
Patient Disposition: Home (Routine Discharge)
Date of Disposition: 11/24/24
Time of Disposition: 08:42
Patient with high blood pressure during this ER visit?: Yes
Discharge Problem:
Corneal abrasion
Instructions: Corneal Abrasion (DC), BLOOD PRESSURE
Prescriptions:
No Action
fenofibrate 160 MG tablet
160 mg PO DAILY
multivitamin with folic acid [Tab-A-Brisa] 1 TABLET tablet
1 tab PO DAILY
aspirin 81 mg Tablet,Delayed Release (Dr/Ec)
81 mg PO DAILY
Fish Oil 120-180 mg Capsule
1 cap PO DAILY
metformin 500 mg tablet
500 mg PO BID
metoprolol succinate 50 mg tablet extended release 24 hr
50 mg PO BID
oxycodone-acetaminophen 5-325 mg Tablet
1 tab PO Q4HPRN PRN (Reason: moderate pain) Qty: 7 0RF
guaifenesin 600 mg Tablet Extended Release 12hr
1,200 mg PO Q12 Qty: 0 0RF
cephalexin 500 mg capsule
500 mg PO TID 10 Days Qty: 30 0RF
ondansetron 4 mg tablet,disintegrating
4 mg PO Q8H PRN (Reason: n/v) Qty: 20 0RF
Referrals:
NONE,* [Family Provider, Internal Medicine]
Arpit Sarkar MD [Non-Admitting Privileges, Ophthalmology]
Activity Restrictions/Additional Instructions:
Please continue the moxifloxacin eye drops, but will defer to ophthalmology for further management recommendations. Please follow-up with Dr. Arpit Sarkar, ophthalmology, today at [facility].
Interventions
Interventions:
*Risk Screen - Suicide Last Done: 11/24/24 04:05
*General Assessment Last Done: 11/24/24 04:05
*Neglect/Abuse Screening Last Done: 11/24/24 07:10
*ED- Fall Risk Assessment Last Done: 11/24/24 04:05
*ED COVID-19 Vaccine History Last Done: 11/24/24 04:05
*Nursing Disposition Last Done: 11/24/24 08:50
Discharge Date and Time
Discharge Date/Time: 11/24/24 08:51
Print Language: YAKUT
[2024-11-24 07:09] VITALS: BP 165/94
[2024-11-24] MEDS: TYLENOL 1000 MG PO (07:40)
[2024-11-24 08:50] VITALS: BP 148/90
== END 2024-11-24 08:51 | disposition home or self-care (01) ==
LOC: EMR 04:01
PROVIDERS: EMERGENCY PHYSICIAN Emergency Medicine
DX: S05.02XA Injury of conjunctiva and corneal abrasion without foreign body, left eye, initial encounter (principal); W44.8XXA Other foreign body entering into or through a natural orifice, initial encounter; I10 Essential (primary) hypertension; Z87.891 Personal history of nicotine dependence
CPT/HCPCS: 99283